=== PATIENT | female | born 1965 | race Caucasian/White ===

== ENCOUNTER 2024-12-18 01:15 | Emergency (ER) | payer MEDICAID ==
[~2024-12-18] VITALS: Ht 170.2 cm; Wt 121.1 kg
[2024-12-18 01:18] VITALS: TEMP 98.4
[2024-12-18 01:50] LABS: BASOPHILS # (AUTO) 0.1 X10'3 (0-0.2); BASOPHILS % (AUTO) 0.6 % (0-1); EOSINOPHILS # (AUTO) 0.3 X10'3 (0-0.9); EOSINOPHILS % (AUTO) 3.7 % (0-6); HEMATOCRIT 41.6 % (35.0-45.0); HEMOGLOBIN 14.4 g/dl (12.0-16.0); LYMPHOCYTES # (AUTO) 1.9 X10'3 (1.1-4.8); LYMPHOCYTES % (AUTO) 21.6 % (21-51); MEAN CORPUSCULAR HEMOGLOBIN 32.6 PG (27.0-31.0); MEAN CORPUSCULAR HGB CONC 34.5 g/dL (33.0-36.5); MEAN CORPUSCULAR VOLUME 94.4 FL (78-98); MEAN PLATELET VOLUME 9.3 FL (7.4-10.4); MONOCYTES # (AUTO) 0.6 X10'3 (0-0.9); MONOCYTES % (AUTO) 6.3 % (2-12); NEUTROPHILS # (AUTO) 6.1 X10'3 (1.8-7.7); NEUTROPHILS % (AUTO) 67.8 % (42-75); PLATELET COUNT 238 X10'3 (140-440)
[2024-12-18] MEDS: normal saline 1000ML IV soln IVB ONE (01:50)
[2024-12-18] MEDS: ondansetron/PF 4mg/2ml inj IV ONE (01:50)
[2024-12-18] MEDS: morphine 4 MG/ML inj SYRINge IV ONE (01:51)
--- NOTE | 2024-12-18 01:53 | Physician Documentation ---
History of Present Illness ~ Chief Complaint: Abdominal Pain Stated Complaint: ABD PAIN Time Seen by MD: 01:52 HPI Patient presents to the emergency room for evaluation right upper quadrant abdominal pain that has been going on for months. She has been evaluated by her doctor before and reports that she has had ultrasounds for this investigation with negative findings. Patient states she has had to significantly modify her diet and eats chicken and rice very often. She does endorse history of reflux. More symptoms recently. Denies chest pain. Denies diarrhea or constipation. Medication Reconciliation Allergies: Coded Allergies: Penicillins (Verified Allergy, Unknown, 12/18/24) Review of Systems ROS All review of systems negative except as per HPI Physical Exam Vital Signs: Temperature: 98.4, Source: Temporal, Heart Rate: 67, Respiratory Rate: 26, BP: 159/102, Pulse Oximetry: 99, Weight: 121.100 Oxygen Flow Rate: 0 Physical Exam General: Patient is awake, alert, oriented x4 in mild distress Head: Normocephalic and atraumatic. Eyes: Conjunctival normal. EOMI. PERRL. ENT: Mucous membranes moist. Neck: Supple, trachea is midline. Chest: Clear to auscultation bilaterally without rales, rhonchi, or wheezes. There is no accessory muscle use or retractions. Cardiac: RRR without murmurs, gallops, or rubs. Abd: Soft, nondistended, nontender, with normoactive bowel sounds. No guarding, rebound, or rigidity. Progress Results/Orders Results/Orders Orders - RASHAAD KEYS MD Urinalysis, Cult If Indicated (12/18/24 01:24) Hcg, Ur Ql (12/18/24 01:24) Ultrasound Of Abdomen (12/18/24 02:34) Completed Orders - RASHAAD KEYS MD Cbc/Diff (12/18/24 01:24) BMP (12/18/24 01:24) Lipase (12/18/24 01:24) CMP (12/18/24 01:24) Morphine 4mg/Ml Inj. (Morphine Inj.) (12/18/24 01:45) Normal Saline 1000ml (Sodium Chloride 10 (12/18/24 01:45) Ondansetron Inj. (Zofran 4mg/2ml Vial) (12/18/24 01:45) Procalcitonin (12/18/24 01:53) Ketorolac Trometh 15mg/Ml Vial (Toradol (12/18/24 02:00) Mag & Alum Hydrox/Simeth Susp (Maalox Or (12/18/24 02:00) Lidocaine 2% Viscous (Xylocaine 2% Visco (12/18/24 02:00) Diazepam Inj (Valium Inj) (12/18/24 02:00) Ultrasound Of Abdomen (12/18/24 02:34) Medications Received in ER Medications (Trade) Dose Ordered Sig/Cash Route PRN Reason Start Time Stop Time Status Last Admin Dose Admin (morphine inj.) 4 mg ONCE ONCE IV 12/18/24 01:45 12/18/24 01:46 DC 12/18/24 01:51 4 MG (sodium chloride 1000ml IV soln) 1,000 ml ONCE ONCE IVB 12/18/24 01:45 12/18/24 01:46 DC 12/18/24 01:50 1,000 ML (Zofran 4mg/2ml vial) 4 mg ONCE ONCE IV 12/18/24 01:45 12/18/24 01:46 DC 12/18/24 01:50 4 MG (Toradol injection) 15 mg ONCE ONCE IV 12/18/24 02:00 12/18/24 02:01 DC 12/18/24 02:56 15 MG (Maalox oral suspension) 30 ml ONCE ONCE PO 12/18/24 02:00 12/18/24 02:01 DC 12/18/24 02:56 30 ML (Xylocaine 2% Viscous 15mL cup) 15 ml ONCE ONCE MM 12/18/24 02:00 12/18/24 02:01 DC 12/18/24 02:56 15 ML (Valium inj) 3 mg ONCE ONCE IV 12/18/24 02:00 12/18/24 02:02 DC 12/18/24 02:56 3 MG Vital Signs 12/18/24 12/18/24 12/18/24 12/18/24 01:18 01:51 01:55 02:56 Temp 98.4 Pulse 67 68 Resp 26 26 11 12 B/P (MAP) 159/102 Pulse Ox 99 98 O2 Flow Rate 0 12/18/24 05:04 Pulse 86 Resp 18 B/P (MAP) 113/64 (80) Pulse Ox 98 O2 Flow Rate 0 Laboratory Tests Test 12/18/24 01:40 12/18/24 05:19 White Blood Count 9.0 Red Blood Count 4.40 Hemoglobin 14.4 Hematocrit 41.6 Mean Corpuscular Volume 94.4 Mean Corpuscular Hemoglobin 32.6 H Mean Corpuscular Hemoglobin Concent 34.5 Red Cell Distribution Width 14.0 Platelet Count 238 Mean Platelet Volume 9.3 Neutrophils (%) (Auto) 67.8 Lymphocytes (%) (Auto) 21.6 Monocytes (%) (Auto) 6.3 Eosinophils (%) (Auto) 3.7 Basophils (%) (Auto) 0.6 Neutrophils # (Auto) 6.1 Lymphocytes # (Auto) 1.9 Monocytes # (Auto) 0.6 Eosinophils # (Auto) 0.3 Basophils # (Auto) 0.1 CBC Comment Sodium Level 140 Potassium Level 3.7 Chloride Level 103 Carbon Dioxide Level 24.3 Anion Gap 13 Blood Urea Nitrogen 14 Creatinine 0.84 Estimated GFR/1.73 m2 70 BUN/Creatinine Ratio 16.7 Glucose Level 113 H Calcium Level 9.6 Total Bilirubin 1.3 H Aspartate Amino Transf (AST/SGOT) 146 H Alanine Aminotransferase (ALT/SGPT) 482 H Alkaline Phosphatase 236 H Total Protein 7.5 Albumin 4.1 Globulin 3.4 Albumin/Globulin Ratio 1.2 Lipase 21 Procalcitonin < 0.05 Chemistry Comments Medical Decision Making Findings Upon re-evaluation patient is comfortable. Patient presented to the emergency room with right upper quadrant pain. Differentials include but are not limited to cholecystitis gastritis diverticulitis pancreatitis intra-abdominal infection therefore emergent labs and imaging indicated. Ultrasound shows gallstones consistent with the p atient's history. No evidence of cholecystitis. There also may be an element of heartburn. Given risks versus benefits all would give a small course of Protonix. Patient is to follow up today with her primary care provider for referral to surgeon for cholecystectomy. I will provide a referral to our surgeon that may also be used by primary care or possibly the surgeon himself. Departure Disposition: HOME / SELF CARE / HOMELESS Impression: Primary Impression: Cholelithiasis without obstruction Condition: Improved Discharge Instructions: Cholelithiasis Additional Instructions: Follow up with your doctor today for referral for possible cholecystectomy. I will provide you with the name of our surgeon [facility] for referral. Referrals: NO PRIMARY CARE PROVIDER (PCP) JOHN VAN MD Prescriptions Pantoprazole Sodium (PROTONIX tablet) 40 Mg Tablet.dr 1 TAB PO DAILY for 30 Days, #30 TAB 0 Refills Prov: RASHAAD KEYS MD 12/18/24 Education Educated: Patient Educated regarding: diagnosis, treatment, need for follow up Signature Scribe Signature: No scribe Attestation: The note accurately reflects work and decisions made by me.Rashaad Keys MD 12/18/24 05:27 RASHAAD KEYS MD December 18, 2024 01:53
[2024-12-18 02:01] LABS: ALANINE AMINOTRANSFERASE 482 U/L (12-78); ALBUMIN 4.1 G/DL (3.4-5.0); ALBUMIN/GLOBULIN RATIO 1.2 (1.1-1.5); ALKALINE PHOSPHATASE 236 IU/L (46-116); ANION GAP 13 (8-16); ASPARTATE AMINO TRANSFERASE 146 U/L (10-37); BILIRUBIN,TOTAL 1.3 MG/DL (0.1-1.0); BLOOD UREA NITROGEN 14 MG/DL (7-18); BUN/CREATININE RATIO 16.7 (10.0-20.0); CALCIUM 9.6 MG/DL (8.5-10.1); CHLORIDE 103 MMOL/L (99-107); CREATININE 0.84 MG/DL (0.40-0.90); GLUCOSE 113 MG/DL (70-104); LIPASE 21 U/L (16-77); POTASSIUM 3.7 MMOL/L (3.5-5.1); SODIUM 140 MMOL/L (135-145); TOTAL CARBON DIOXIDE 24.3 MMOL/L (24-32); TOTAL PROTEIN 7.5 G/DL (6.4-8.2); eCRCL 71 ML/MIN; eGFR 70 ML/MIN
[2024-12-18] MEDS: ketorolac trometh 15mg/ml vial 15 MG/ML ML IV ONE (02:56)
[2024-12-18] MEDS: diazepam inj 5 MG/ML inj. IV ONE (02:56)
[2024-12-18] MEDS: LIDOcaine 2% Viscous 15ml cup MM ONE (02:56)
[2024-12-18] MEDS: mag hydrox/Alum hydrox/simeth 30ml oral suspension PO ONE (02:56)
[2024-12-18] MEDS ORDERED: PANT-47 PO (05:27)
[2024-12-18 05:28] LABS: BILIRUBIN,URINE NEGATIVE (Neg); CLARITY,URINE CLEAR (Clear); COLOR,URINE YELLOW (Yellow); GLUCOSE, URINE NEGATIVE (Neg); KETONES,URINE TRACE mg/dl (Neg); LEUKOCYTE ESTERASE ,URINE NEGATIVE (Neg); NITRITES, URINE NEGATIVE (Neg); OCCULT BLOOD,URINE TRACE-INTACT (Neg); PROTEIN,URINE NEGATIVE (Neg); UROBILINOGEN,URINE 0.2 E.U/dL (0.2-1.0)
[2024-12-18 05:29] LABS: URINE HCG NEGATIVE (NEG)
[2024-12-18 05:30] LABS: UA COLLECTION TYPE CLN CATCH MIDSTREAM
[2024-12-18 05:34] LABS: BACTERIA,URINE FEW /HPF (Neg); MUCUS STRANDS NONE SEEN /LPF (Neg); RBC,URINE 0-2 /HPF (0-2); SQUAMOUS EPITHELIAL CELL,UR FEW /LPF (FEW); WBC,URINE 0-4 /HPF (0-4); YEAST FEW /HPF (NEGATIVE)
--- NOTE | 2024-12-18 05:42 | RADIOLOGY REPORT ---
EXAM: US Abdomen Limited, Right Upper Quadrant CLINICAL INDICATION: abd pain TECHNIQUE: Real-time ultrasound of the right upper quadrant with image documentation. COMPARISON: None FINDINGS: LIVER: Liver measures up to 17.5 cm. No intrahepatic bile duct dilation. GALLBLADDER: Cholelithiasis. Negative Villegas's sign was reported by the endoscopy rn. COMMON BILE DUCT: Unremarkable as visualized. No stones. No dilation. Common bile duct measures 0.40 cm in diameter. PANCREAS: Unremarkable as visualized. RIGHT KIDNEY: Right kidney measures up to 10.5 cm. No stones. No hydronephrosis. OTHER FINDINGS: . IMPRESSION: Cholelithiasis without convincing evidence of acute cholecystitis.
[2024-12-18 06:12] VITALS: BP 113/64; PULSE 94; RESP 16; O2SAT 98
== END 2024-12-18 06:15 | disposition home or self-care (01) ==
LOC: ER 01:16
DX: K80.20 Calculus of gallbladder without cholecystitis without obstruction (principal); Z88.0 Allergy status to penicillin
CPT/HCPCS: 36415; 76700; 80053; 81001; 81025; 83690; 84145; 85025; 96361; 96374; 96375; 99285; J1885; J2270; J2405; J3360; J7030

== ENCOUNTER 2025-01-17 20:03 | Emergency (ER) | payer MEDICAID ==
[~2025-01-17] VITALS: Ht 170.2 cm; Wt 104.5 kg
[~2025-01-17 20:03] MED LIST: PANT-47 PO
[2025-01-17 20:14] VITALS: BP 160/95; PULSE 64; RESP 18; TEMP 97; O2SAT 99
== END 2025-01-17 20:56 | disposition left against medical advice (07) ==
LOC: ER 20:03
DX: R10.84 Generalized abdominal pain (principal); Z88.0 Allergy status to penicillin; Z53.21 Procedure and treatment not carried out due to patient leaving prior to being seen by health care provider